=== PATIENT | male | born 2000 | race Asian ===

== ENCOUNTER 2025-01-18 09:55 | Outpatient (REF) | payer BC, SELFPAY ==
[2025-01-19 15:10] LABS: H Pylori Breath Test Negative (Negative)
== END 2025-01-18 09:56 | disposition home or self-care (01) ==
LOC: HO.LNP 09:55
PROVIDERS: Visit Provider Internal Medicine Gastroenterology
DX: R10.9 Unspecified abdominal pain (principal)
CPT/HCPCS: 83013; 99211

== ENCOUNTER 2025-01-18 09:55 | Outpatient (AMB) | payer BC, SELFPAY ==
--- NOTE | 2025-01-18 10:02 | AM.OFFVISNUR ---
Intake Visit Reasons: ylori Nursing Note Patient presents for collection of H Pylori breath test. Patient has been fasting for 1 hour (nothing to eat, drink, no chewing gum or smoking) has not taken any antacid medication for at least 2 weeks and has no allergies to artificial sweeteners.?? Assessment & Plan Assessment & Plan (1) Abdominal pain: Code(s): R10.9 - Unspecified abdominal pain Plan Patient presents for collection of H Pylori breath test. Patient has been fasting for 1 hour (nothing to eat, drink, no chewing gum or smoking) has not taken any antacid medication for at least 2 weeks and has no allergies to artificial sweeteners.???This test checks for an overgrowth of bacteria in your stomach. We all have bacteria but some may have more than others. It is treatable. if the test comes back negative there is nothing else to do. If the test result is positive we will treat you with 2 antibiotics and a medication to decrease the acid in your stomach (PPI) for 2 weeks. Two weeks after you have completed the treatment we will retest you to make sure the overgrowth has resolved. Patient Instructions: Process for specimen collection and reason for testing was explained to the patient. Specimen collection. Patient instructed to take a deep breath and then exhale into the blue bag, filling it up as much as possible. Patient instructed to drink a mixture of water and the artificial sweetener with a straw. A 15 minute wait period was observed. Patient instructed to take a deep breath and then exhale into the pink bag, filling it up as much as possible.?? Coding Level of Care Code Established Pt Est Pt Level 1 (54377) Patient Type Established Medical Decision Making Straight Forward Diagnoses Abdominal pain R10.9
== END 2025-01-18 10:05 | disposition home or self-care (01) ==
LOC: HO.HGI 09:56
DX: R10.9 Unspecified abdominal pain (principal)

== ENCOUNTER 2025-01-24 14:20 | Outpatient (REF) | payer BC, SELFPAY ==
[2025-01-24 14:46] LABS: MANUAL DIFF FLAG NO
[2025-01-24 15:03] LABS: Basophils Percent Auto 0.7 % (0-2); Eosinophils Absolute Auto 0.1 X10*3/uL (0.0-0.4); Hematocrit 41.1 % (42.0-52.0); Hemoglobin 13.8 g/dl (14.0-18.0); Imm Gran Abs Auto 0.02 X10*3/uL (0.00-0.03); Imm Gran Pct Auto 0.3 % (0.0-0.4); Lymphocytes Absolute Auto 2.3 X10*3/uL (1.2-4.9); Lymphocytes Percent Auto 39.2 % (20-40); Mean Corpuscular HGB Conc 33.6 g/dl (31.0-36.0); Mean Corpuscular Hemoglobin 27.7 pg (27.0-33.0); Mean Corpuscular Volume 82.5 fL (80.0-98.0); Mean Platelet Volume 10.4 fL (9.4-12.4); Monocytes Absolute Auto 0.4 X10*3/uL (0.1-1.2); Monocytes Percent Auto 6.1 % (2-11); Neutrophils Absolute Auto 3.1 x10*3/uL (2.0-8.3); Neutrophils Percent Auto 51.7 % (45-73); Platelet Count 219 X10*3/uL (160-400); Red Blood Count 4.98 X10*6/uL (4.60-5.80); Red Cell Distribution Width 12.2 % (11.0-16.0); White Blood Count 5.9 X10*3/uL (4.8-10.8)
[2025-01-24 15:37] LABS: Alanine Aminotransferase 22 U/L (0-40); Albumin Level 4.5 g/dL (3.5-5.0); Anion Gap 11 (12-20); Aspartate Amino Transferase 37 U/L (5-37); Bilirubin Total 0.5 mg/dL (0.0-1.0); Blood Urea Nitrogen 13 mg/dL (9-16); C Reactive Protein < 0.10 mg/dL (< or = 0.50); Calcium 9.4 mg/dL (8.4-10.2); Carbon Dioxide 26 mmol/L (22-29); Chloride 107 mmol/L (96-108); Estimated Glomerular Filt Rate > 60; Glucose Random 92 mg/dL (60-115); Potassium 4.6 mmol/L (3.3-5.1); Sodium 139 mmol/L (135-145); Total Protein 7.3 g/dL (6.5-8.0)
[2025-01-24 15:58] LABS: Ferritin 196 ng/mL (20-250); TSH reflex Free T4 2.85 uIU/mL (0.32-4.0)
[2025-01-24 16:08] LABS: Folate 6.4 ng/mL (> or = 4.0); Vitamin B12 373 pg/mL (200-900)
[2025-01-24 17:59] LABS: Alkaline Phosphatase 69 U/L (39-117)
[2025-01-25 17:33] LABS: IgA 146 mg/dL (47-310); IgG 1082 mg/dL (600-1640); IgM 56 mg/dL (50-300)
[2025-01-25 20:04] LABS: Class Almond 0; Class Brazil Nut 0; Class Cashew 0; Class Codfish 0; Class Cow's Milk 0/1; Class Egg white 0; Class Hazelnut 0; Class Macadamia Nut 0; Class Peanut 0; Class Salmon 0; Class Scallop 0/1; Class Sesame Seed 0; Class Shrimp 3; Class Soybean 0; Class Tuna 0; Class Walnut 0; Class Wheat 2; F001-IgE Egg White <0.10 kU/L; F003-IgE Codfish <0.10 kU/L; F010-IgE Sesame Seed <0.10 kU/L; F013-IgE Peanut <0.10 kU/L; F014-IgE Soybean <0.10 kU/L; F017-IgE Hazelnut (Filbert) <0.10 kU/L; F018-IgE Brazil Nut <0.10 kU/L; F020-IgE Almond <0.10 kU/L; F040-IgE Tuna <0.10 kU/L; F041 IgE Salmon <0.10 kU/L; F202-IgE Cashew Nut <0.10 kU/L; F256-IgE Walnut <0.10 kU/L; F338-IgE Scallop 0.22 kU/L; F345-IgE Macadmia Nut <0.10 kU/L
[2025-01-26 09:04] LABS: HBS Num1 6.88 mIU/mL (0-7.99); HBc Num1 0.09 S/CO (0.00-0.79); HBsAGNum1 0.52 S/CO (0.00-0.99); Hepatitis A Antibody IgM 0.14 Index (0-0.79); Hepatitis B Core Antibody Nonreactive (Nonreactive); Hepatitis B Surface Antigen Negative (Negative); ~HepC Num1 0.15 S/CO (0.00-0.79); ~Hepatitis A Antibody IgM Nonreactive (Nonreactive); ~Hepatitis B Surface Antibody NONREACTIVE (Nonreactive); ~Hepatitis C Antibody Nonreactive (Nonreactive)
== END 2025-01-24 14:21 | disposition home or self-care (01) ==
LOC: HO.LAB 14:20
PROVIDERS: Visit Provider Internal Medicine Gastroenterology
DX: K75.81 Nonalcoholic steatohepatitis (NASH) (principal); R10.9 Unspecified abdominal pain; E46 Unspecified protein-calorie malnutrition; Z91.018 Allergy to other foods
CPT/HCPCS: 36415; 80053; 82607; 82728; 82746; 82784; 84443; 85025; 86003; 86140; 86704; 86706; 86709; 86803; 87340

== ENCOUNTER 2025-01-25 14:56 | Outpatient (REF) | payer BC, SELFPAY ==
[2025-02-01 16:29] LABS: Lactoferrin, Fecal, Quant. <6.25 mcg/mL (<7.25)
== END 2025-01-25 14:57 | disposition home or self-care (01) ==
LOC: HO.LNP 14:56
PROVIDERS: Visit Provider Internal Medicine Gastroenterology
DX: K51.50 Left sided colitis without complications (principal); R10.9 Unspecified abdominal pain; E46 Unspecified protein-calorie malnutrition
CPT/HCPCS: 83631

== ENCOUNTER 2025-01-31 11:27 | Outpatient (AMB) | payer BC, SELFPAY ==
--- NOTE | 2025-01-31 11:29 | MHC.OFFVIS ---
Vital Signs 01/31/25 11:31 Height 5 ft 11 in Weight 202 lb 13.204 oz BMI 28.3 BP 115/61 Blood Pressure Location Lt brachial Position Sitting Pulse 45 L Intake Visit Reasons: f/u Intake Note: Sammie presents in the office as a follow up. CC: He states that he hears his bowels throughout the day and lots of bloating in the middle part of his abdomen. States that the bloating is also in the lower part of his stomach. He states he has an issue to have a BM. 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 Required: No Allergies wheat Allergy (Mild, Verified 01/31/25 11:33) Unknown scallops Adverse Reaction (Mild, Verified 01/31/25 11:33) Unknown shrimp Adverse Reaction (Mild, Verified 01/31/25 11:33) Unknown cow milk Adverse Reaction (Mild, Uncoded 01/31/25 11:33) Unknown HPI HPI f/u: Details: HPI 24 yr old m here for assessment He has been having abdominal issues bloating lower abdominal pain for 3 months like a fullness he has to wait in the bathroom he has constipation usually which is new for him no blood in stools no nausea or vomiting appetite fair early satiety weight is stable he has weird sensation rectum area H pylori is negative RASt pos for wheat, shrimp, scallop EGD: 09/04- esophagitis, erosive duodenitis, erosive gastritis ROS: Constitutional : No Weight loss, No Fever, No Chills ENT/Mouth : No sore throat, No Rhinorrhea Eyes: No Swelling, No Redness Cardiovascular : No Chest Pain, No SOB, No Edema Respiratory : No Cough, No Sputum, No Wheezing Gastrointestinal : see HPI Genitourinary : NO Dysuria, No Urinary Frequency, No Hematuria, No Urgency Musculoskeletal : no joint pain, No Myalgias, No Joint Swelling Skin : No Skin Lesions, No rash Neuro : No Weakness, No Numbness, No Dizziness, No Headache Psych : No Anxiety/Panic, No Depression Heme/Lymph: No Bruising, No Lymphadenopathy Endocrine : No Polyuria, No Polydipsia All other systems reviewed and are negative. Medical History none Surgical History arthroscopy Family History mother -breast cancer -55 Social History no alcohol, no smoking, no drug use studying [employer] EXAM: GENERAL: The patient is well developed and nontoxic. VITAL SIGNS:see workflow HEENT: Nonicteric sclerae, PERRLA, EOMI. Oropharynx clear. Moist mucous membranes. Conjunctivae appear well perfused. No thyroid mass. CHEST: Chest wall is nontender. HEART: Regular rate and rhythm without murmurs. LUNGS: Clear to auscultation bilaterally. ABDOMEN: Soft, positive bowel sounds, nontender, no organomegaly.no flank tenderness SKIN: No rash, no excessive bruising, petechiae, or purpura. NEUROLOGIC: Cranial nerves II-XII intact without motor/sensory deficit. Psych: normal affect A/P: 1/ Abn bowel habit, early satiety PLAN: 1/ mild anemia on labs, need to exclude mechancical issues, IBD, polyps, 2/ EGD and colo for further assessment, suprep if covered otherwise miralax and gatorade 3/ trial of PPI [facility] Surgical History (Updated 01/31/25 @ 11:33 by MATY Fowler) History of esophagogastroduodenoscopy (EGD) Physical Exam Vital Signs: Last Vital Signs Pulse 45 L 01/31/25 11:31 BP 115/61 01/31/25 11:31 BMI result Body Mass Index 28.3 Assessment & Plan Assessment & Plan (1) Abdominal pain: Code(s): R10.9 - Unspecified abdominal pain Category: Medical Plan: as above Medications: New omeprazole 40 mg PO DAILY 90 caps 1RF sodium,potassium,mag sulfates 17.5-3.13-1.6 gram (Suprep Bowel Prep Kit) DILUTE; drink 1/2 at 6-8 pm and half at 11 PM- 1AM 354 mL 0RF Coding Level of Care Code New Pt Level 4 (76262) Diagnoses Abdominal pain R10.9
[2025-01-31 11:31] VITALS: BP 115/61; PULSE 45; BMI 28.3
== END 2025-01-31 16:51 | disposition home or self-care (01) ==
LOC: HO.HGI 11:27
PROVIDERS: Visit Provider Internal Medicine Gastroenterology
DX: R10.9 Unspecified abdominal pain (principal)
CPT/HCPCS: 99204

== ENCOUNTER → 2025-01-31 11:27 | Outpatient (BNVA) | payer BC, SELFPAY | PROVIDERS: Visit Provider Internal Medicine Gastroenterology | DX: Z13.89 Encounter for screening for other disorder (principal) ==

== ENCOUNTER 2025-02-01 10:29 | Day surgery (SDC) | payer BC, SELFPAY ==
[2025-02-01 11:44] VITALS: BMI 28.8
--- NOTE | 2025-02-01 11:55 | MHC.SHP ---
Pre-Procedural Eval Section A - 24 Hr Update-Section A only Date of Service: 02/01/25 The patient is an INPATIENT: No The patient has been examined within 24 hours of the surgical procedure. The History & Physical has been completed within 30 days and I have reviewed it.: Yes Section B - Complete if H&P > 30 days Chief Complaint: Unspecified abdominal pain Allergies: Allergies Allergy/AdvReac Type Severity Reaction Status Date / Time wheat Allergy Mild Diarrhea Verified 02/01/25 11:44 scallops AdvReac Mild Diarrhea Verified 02/01/25 11:44 shrimp AdvReac Mild Diarrhea Verified 02/01/25 11:44 cow milk AdvReac Mild Diarrhea Uncoded 02/01/25 11:44 Plan Diagnosis/Plan: Unchanged I have reviewed the history and physical and performed a pertinent physical examination on my patient. No changes have occurred unless specified. Time Spent With Patient Time: Total time managing care of this patient today ____ minutes.
[2025-02-01 12:02] VITALS: BP 124/69; PULSE 40; RESP 16; TEMP 36.3; O2SAT 100
--- NOTE | 2025-02-01 12:09 | HO.ANESPROP2 ---
PMFSH Active Problems Active Problems: All Active Problems Malnutrition (Acute) Abdominal pain (Acute) Family History Family history of problems with anesthesia: No Surgical History Surgical History (Updated 02/01/25 @ 11:43 by Karina Hernandez RN) H/O shoulder surgery History of esophagogastroduodenoscopy (EGD) History of Problems with Anesthesia: No Social History Social History Patient Tobacco Use Status: Never used Tobacco Use of substances other than those prescribed or required for medical reasons: No Are you DNR?: No Advance Directives: No Advance Directives Information Provided: Yes Poor oral hygiene: No Meds Allergies Allergy/AdvReac Type Severity Reaction Status Date / Time wheat Allergy Mild Diarrhea Verified 02/01/25 11:44 scallops AdvReac Mild Diarrhea Verified 02/01/25 11:44 shrimp AdvReac Mild Diarrhea Verified 02/01/25 11:44 cow milk AdvReac Mild Diarrhea Uncoded 02/01/25 11:44 Exam Height,Weight and Vital Signs: Height 5 ft 10 in Weight 90.9 kg Last Vital Signs Temp 97.4 F 02/01/25 12:02 Pulse 40 L 02/01/25 12:02 Resp 16 02/01/25 12:02 BP 124/69 02/01/25 12:02 Pulse Ox 100 02/01/25 12:02 O2 Del Method Room Air 02/01/25 12:02 Airway Mallampati Class: II TM Dist: >3cm Neck ROM: Full Assessment and Plan Assessment Anesthesia Assessment: Anesthesia Plan Discussed and Chart Reviewed Final Anesthetic Review Family History of Problems with Anesthesia: No History of Problems with Anesthesia: No NPO: Yes ASA Class: II Final Preanesthetic Review: No Changes in Pt Med Stat, Meds/Allgs Chart Reviewed, Consent Obtained/Reviewed and Anes Risks/Benef Reviewed Patient Risk: Low Procedure Risk: Low Anesthetic Plan Anesthetic Plan: TIVA Disposition: Standard PACU
[2025-02-01 12:22] VITALS: BMI 27.7
--- NOTE | 2025-02-01 13:13 | HO.OPN-COLON ---
Colonoscopy Operative Note Operative Note Date of Service: 02/01/25 Narrative: Operative Information Procedure Description: EGD, Colonoscopy Indication: GERD, abn bowel habits Anesthesia: MAC FLEXIBLE TRANSORAL UPPER GASTROINTESTINAL ENDOSCOPY AND COLONOSCOPY PROCEDURE NOTE UPPER ENDOSCOPY Consent: Indications for the procedure and potential complications of bleeding, perforation, reaction to medications and missed diagnosis were discussed with the patient and informed consent was obtained. Instrument: Olympus GIF H 190 J mid size upper endoscope Monitoring: Vital signs and clinical assessment, continuous EKG monitoring, Pulse oximetry, Carbon Dioxide monitoring and blood pressure monitoring were done throughout the procedure. Procedure: The patient was placed in the left lateral decubitis position and pre-procedure medications were administered and a bite block was placed. The endoscope was inserted into the mouth and advanced under direct vision to the third part of duodenum. A careful inspection was made as the upper endoscope was withdrawn including a retroflexed examination of the proximal stomach; Findings and interventions are described below. Findings: Larynx:normal Esophagus: GE junction at 40 cm, diaphragm hiatus at 40 cm, mild esophagitis, bx taken from GEJ Stomach: Patchy erythema. Biopsies were obtained. Grade 2 flap valve on retroflexed examination of the cardia. Duodenum: Normal bulb and descending duodenum, bx taken Intervention: Biopsies as noted above, COLONOSCOPY Instrument: Olympus variable stiffness pediatric scope 190L Colonoscopy Monitoring: Vital signs and clinical assessment, continuous EKG monitoring, Pulse oximetry, Carbon Dioxide monitoring and blood pressure monitoring were done throughout the procedure. Colon withdrawal time was 10 minutes. Procedure: The patient was placed in the left lateral decubitis position and pre-procedure medications were administered. After a digital rectal examination of the ano-rectum, the video colonoscope was inserted into the rectum and advanced through the colon to the cecum/TI. The colonoscope was slowly withdrawn in a retrograde panoramic fashion and the colon mucosa was carefully examined including a retroflexed view of the rectum. Findings and interventions are described below. Procedure Difficulty:moderate Findings: Terminal Ileum-normal, bx taken random bx taken from right left and rectum areas Cecum:normal Ascending Colon: normal Transverse Colon -normal Descending Colon:normal Sigmoid Colon: normal Rectum: Retroflexion with small internal hemorrhoids, grade I, mild patchy erythema Anorectum - normal Colon preparation: [place] Bowel Preparation Scale Right colon; 3 Transverse colon: 3 Left colon; 3 (0 = Unprepared colon segment with mucosa not seen due to solid stool that cannot be cleared. 1 = Portion of mucosa of the colon segment seen, but other areas of the colon segment not well seen due to staining, residual stool and/or opaque liquid. 2 = Minor amount of residual staining, small fragments of stool and/or opaque liquid, but mucosa of colon segment seen well. 3 = Entire mucosa of colon segment seen well with no residual staining, small fragments of stool or opaque liquid) Impression and Post Procedure Diagnosis: Endoscopy Findings: esophagitis gastritis Colonoscopy Findings: mild proctitis small internal hemorrhoids Plan: Await Pathology results Repeat Colonoscopy aged 45 or earlier if clinically indicated High fiber diet leaflet avoid straining at stool, epsom salts and sitz bath, anusol supps or cream commence PPI consider mesalamine and see if helps, might start with PO first Above findings were reviewed with the patient and relevant handouts were provided if indicated.
[2025-02-01 13:16] VITALS: BP 98/57; PULSE 59; RESP 15; TEMP 36.1; O2SAT 99
[2025-02-01 13:27] VITALS: BP 104/60; PULSE 53; RESP 17; TEMP 36.4; O2SAT 99
[2025-02-01 13:33] VITALS: BP 107/67; RESP 15; TEMP 36.3; O2SAT 100
== END 2025-02-01 13:57 | disposition home or self-care (01) ==
PROVIDERS: Visit Provider Internal Medicine Gastroenterology
PROC: (CPT 45380; principal; 2025-02-01 13:20)
DX: R19.4 Change in bowel habit (principal); K62.89 Other specified diseases of anus and rectum; K64.0 First degree hemorrhoids; R14.0 Abdominal distension (gaseous); R68.81 Early satiety; K21.9 Gastro-esophageal reflux disease without esophagitis; K29.50 Unspecified chronic gastritis without bleeding; K20.80 Other esophagitis without bleeding; K44.9 Diaphragmatic hernia without obstruction or gangrene; Z91.011 Allergy to milk products; Z91.013 Allergy to seafood; Z91.018 Allergy to other foods
CPT/HCPCS: 45380; 43239; 88305; 88313; 88342; J2003; J2704

== ENCOUNTER → 2025-02-01 10:29 | Outpatient (BNV) | payer BC, SELFPAY | PROVIDERS: Visit Provider Internal Medicine Gastroenterology | DX: R19.5 Other fecal abnormalities (principal); K62.89 Other specified diseases of anus and rectum; K64.8 Other hemorrhoids; K21.00 Gastro-esophageal reflux disease with esophagitis, without bleeding; K29.70 Gastritis, unspecified, without bleeding | CPT/HCPCS: 43239; 45380 ==

== ENCOUNTER 2025-02-27 10:41 | Outpatient (AMB) | payer BC, SELFPAY ==
[2025-02-27 10:44] VITALS: BP 116/56; PULSE 44; BMI 27.7
--- NOTE | 2025-02-27 10:44 | A.OFFVIS_ITS ---
Vital Signs 02/27/25 10:44 Height 5 ft 11 in Weight 198 lb 6.656 oz BMI 27.7 BP 116/56 L Blood Pressure Location Lt brachial Position Sitting Pulse 44 L Intake Visit Reasons: abd pain Intake Note: Sammie presents in the office as a follow up for abdominal pains. CC :HAd a colo and EGD - states symptoms are all the same. Allergies wheat Allergy (Mild, Verified 02/27/25 10:44) Diarrhea scallops Adverse Reaction (Mild, Verified 02/27/25 10:44) Diarrhea shrimp Adverse Reaction (Mild, Verified 02/27/25 10:44) Diarrhea cow milk Adverse Reaction (Mild, Uncoded 02/27/25 10:44) Diarrhea HPI HPI abd pain: Details: 24 yr old m here for f/u RECAP He had been having abdominal issues bloating lower abdominal pain for 3 months like a fullness he had to wait in the bathroom he had constipation usually which was new for him EGD: 09/04--WEND[facility]- esophagitis, erosive duodenitis, erosive gastritis EGD/[place]: 01/2025 Endoscopy Findings: esophagitis gastritis Colonoscopy Findings: mild proctitis small internal hemorrhoids Path: reflux changes Labs: mild anemia, RAST pos to wheat and shrimp H pylori- negative INTERIM: he feels symptoms are the same he tried mesalamine supps for few times but not properly fullness has improved he has changed diet --avoiding wheat and shrimp he got metamucil but only taking before bed mother with stage 4 breast ca ROS: Constitutional : No Weight loss, No Fever, No Chills ENT/Mouth : No sore throat, No Rhinorrhea Eyes: No Swelling, No Redness Cardiovascular : No Chest Pain, No SOB, No Edema Respiratory : No Cough, No Sputum, No Wheezing Gastrointestinal : see HPI Genitourinary : NO Dysuria, No Urinary Frequency, No Hematuria, No Urgency Musculoskeletal : no joint pain, No Myalgias, No Joint Swelling Skin : No Skin Lesions, No rash Neuro : No Weakness, No Numbness, No Dizziness, No Headache Psych : No Anxiety/Panic, No Depression Heme/Lymph: No Bruising, No Lymphadenopathy Endocrine : No Polyuria, No Polydipsia All other systems reviewed and are negative. Medical History none Surgical History arthroscopy Family History mother -breast cancer -55 Social History no alcohol, no smoking, no drug use studying [employer] EXAM: GENERAL: The patient is well developed and nontoxic. VITAL SIGNS:see workflow HEENT: Nonicteric sclerae, PERRLA, EOMI. Oropharynx clear. Moist mucous membranes. Conjunctivae appear well perfused. No thyroid mass. CHEST: Chest wall is nontender. HEART: Regular rate and rhythm without murmurs. LUNGS: Clear to auscultation bilaterally. ABDOMEN: Soft, positive bowel sounds, nontender, no organomegaly.no flank tenderness SKIN: No rash, no excessive bruising, petechiae, or purpura. NEUROLOGIC: Cranial nerves II-XII intact without motor/sensory deficit. Psych: normal affect A/P: 1/ Abn bowel habit, could be diet related, no obvious cause on endoscopy, mild proctitis but bx were negative PLAN: 1/ Discussed getting CTe, he will consider it vs capsule depending on insurance issues 2/ we did discuss diet improvements incl increasing water intake which is poor 3/ cont to avoid allergens 4/ trial of claritin , might help if allergy related PFSH Surgical History (Updated 02/27/25 @ 10:45 by MATY Fowler) Hx of colonoscopy H/O shoulder surgery History of esophagogastroduodenoscopy (EGD) Social History Patient Tobacco Use Status: Never used Tobacco Physical Exam Vital Signs: Last Vital Signs Pulse 44 L 02/27/25 10:44 BP 116/56 L 02/27/25 10:44 BMI result Body Mass Index 27.7 Assessment & Plan Assessment & Plan (1) Abdominal pain: Code(s): R10.9 - Unspecified abdominal pain Category: Medical Plan: as above Plan as above Orders: Orders CT enterography Today R10.33 - Periumbilical pain Medications: New loratadine (Claritin) 10 mg PO DAILY 30 tabs 2RF Coding Level of Care Code Est Pt Level 3 (08207) Diagnoses Abdominal pain R10.9
== END 2025-02-27 11:21 | disposition home or self-care (01) ==
LOC: HO.HGI 10:42
PROVIDERS: Visit Provider Internal Medicine Gastroenterology
DX: R10.9 Unspecified abdominal pain (principal)
CPT/HCPCS: 99213

== ENCOUNTER → 2025-02-27 10:41 | Outpatient (BNVA) | payer BC, SELFPAY | PROVIDERS: Visit Provider Internal Medicine Gastroenterology | DX: Z13.89 Encounter for screening for other disorder (principal) ==

== ENCOUNTER 2025-04-11 08:23 | Outpatient (REF) | payer BC, SELFPAY ==
--- NOTE | ~2025-04-11 | CT_ITS ---
EXAMINATION: CT ABDOMEN PELVIS ENTEROGRAPHY WITHOUT IV CONTRAST HISTORY: R10.33 - Periumbilical pain COMPARISON: There are no prior studies for available comparison. TECHNIQUE: CT scan of the abdomen and pelvis was performed following administration of 85 mL Omnipaque 350 using standard departmental protocol. Coronal and sagittal reformatted images were generated and reviewed. The patient received low-density oral contrast material for CT enterography. This CT exam was performed with one or more of the following dose reduction techniques: automated exposure control, adjustment of the mA and/or kV according to patient size, use of iterative reconstruction technique. DLP: 458 mGy-cm FINDINGS: LOWER CHEST: The visualized lung bases are clear. There is no pleural effusion. CARDIOVASCULATURE: The heart is normal in size. There is no pericardial effusion. LIVER: The liver is normal in size and contour. No liver mass is identified. The portal vein is patent. GALLBLADDER / BILE DUCTS: The gallbladder is unremarkable. There is no intra or extrahepatic biliary ductal dilatation. SPLEEN: The spleen is normal in size. No focal splenic lesion is identified. PANCREAS: The pancreas is unremarkable in appearance. ADRENAL GLANDS: Within normal limits. KIDNEYS/RETROPERITONEUM: No renal calculi are identified. There is no hydronephrosis. No renal masses are identified. LYMPH NODES: No abdominal or pelvic lymphadenopathy. VASCULATURE: The abdominal aorta is normal in caliber. 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 The superior mesenteric and inferior mesenteric arteries are patent. MESENTERY/PERITONEUM: No free fluid. No masses. There is no free intraperitoneal gas. STOMACH: The stomach is unremarkable. SMALL BOWEL: The small bowel is normal in caliber. There is no abnormal small bowel wall thickening or mucosal hyperenhancement. COLON: There is a large amount of stool throughout the colon. APPENDIX: Normal. URINARY BLADDER/PELVIC ORGANS: The urinary bladder is unremarkable. The prostate is normal in size. BONES / SOFT TISSUES: No suspicious bony or soft tissue abnormalities. CT/CT enterography IMPRESSION: 1. No small bowel abnormality is identified. 2. 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 Clinical correlation is recommended. Doppler ultrasound of the celiac axis during different phases of respiration may be helpful. Electronically signed by: Dima Malik MD 04/11/2025 10:33 AM EDT RP
[2025-04-11] MEDS: iohexoL 350 MG/ML 100 ML INFUS..BTL 85 ML IV (10:06)
[2025-04-11] MEDS: Sorbitol/Mannit/Xanth Imaging 500 ML LIQUID 1500 ML PO (10:07)
== END 2025-04-11 08:24 | disposition home or self-care (01) ==
LOC: HO.CT 08:23
PROVIDERS: Visit Provider Internal Medicine Gastroenterology
DX: R10.33 Periumbilical pain (principal)
CPT/HCPCS: 74177; Q9967

== ENCOUNTER → 2025-04-11 08:25 | Outpatient (BNV) | payer BC, SELFPAY | PROVIDERS: Visit Provider Radiology Diagnostic Radiology | DX: R10.33 Periumbilical pain (principal) | CPT/HCPCS: 74177 ==

== ENCOUNTER 2025-04-25 09:31 | Outpatient (REF) | payer BC, SELFPAY ==
--- NOTE | ~2025-04-25 | US_ITS ---
EXAM: Ultrasound mesenteric arteries INDICATION: Generalized abdominal pain, epigastric pain, nausea, worsened after eating or drinking TECHNIQUE: Grayscale, color Doppler, and duplex was performed to evaluate the aorta, celiac artery, SMA, FANTA, splenic artery, and hepatic artery during inspiration and expiration. Comparison: CT from April 11, 2025 FINDINGS: US Data: Aorta peak systolic velocity (cm/sec) Measurement 1 proximal to SMA: 138 Measurement 2 distal to SMA: 137 Average: 138 Triphasic arterial waveform Celiac axis peak systolic velocity during inspiration (cm/sec) Measurement 1 supine: 275 Measurement 2 upright: 146 Celiac axis peak systolic velocity during expiration (cm/sec) Measurement 1 supine: 164 Measurement 2 upright: 308 Ratio celiac expiration: Aorta = 2.2 Deflection angle between inspiration and expiration = 45 degrees SMA peak systolic velocity (cm/sec) Measurement proximal: 299 Measurement mid: 232 Distal: 94 Low resistance arterial waveform. FANTA peak systolic velocity (cm/sec) Measurement: 127 Low resistance arterial waveform. Splenic artery peak systolic velocity (cm/sec) Measurement: 127 Low resistance arterial waveform. Hepatic artery peak systolic velocity (cm/sec) Measurement: 145 Low resistance arterial waveform On CT, celiac axis has a hooked morphology with an indent on the cephalad margin of the vessel. US/US SMA IMPRESSION: The examination is suggestive of but not 100% diagnostic of median arcuate ligament syndrome. There is an elevated deflection angle. The celiac axis has a hooked morphology with an indent on the superior margin. There is an elevated peak systolic velocity of the celiac axis during expiration in the upright position but not in supine position. However, the ratio peak velocity maximum of the celiac axis in expiration compared to the aortic velocity is not elevated. Electronically signed by: Carroll Rahman MD 04/25/2025 10:36 AM EDT
== END 2025-04-25 09:32 | disposition home or self-care (01) ==
LOC: HO.US 09:31
PROVIDERS: Visit Provider Internal Medicine Gastroenterology
DX: R10.9 Unspecified abdominal pain (principal)
CPT/HCPCS: 93976

== ENCOUNTER → 2025-04-25 09:33 | Outpatient (BNV) | payer BC, SELFPAY | PROVIDERS: Visit Provider Radiology Diagnostic Radiology | DX: R10.84 Generalized abdominal pain (principal); R10.13 Epigastric pain; R11.0 Nausea | CPT/HCPCS: 93976 ==

== ENCOUNTER 2025-06-13 10:50 | Outpatient (AMB) | payer BC, SELFPAY ==
[2025-06-13 10:52] VITALS: BMI 27.6
--- NOTE | 2025-06-13 10:52 | A.OFFVIS_ITS ---
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 He had originally seen our GI team in February of this year. At that time he had undergone CT and upon subsequent discussion with me we also obtained an ultrasound. He has been having intermittent abdominal pain. He has had a bloating and full feeling this has been going on for the past 6 months or so. He has episodes of severe constipation. He denies any significant weight loss. Of note he has had a prior EGD performed in [facility] on 09/04 demonstrating esophagitis erosive duodenitis any erosive gastritis. He now presents to us for vascular evaluation. Of note he is a nonsmoker nondrinker and a nondiabetic. [facility] Surgical History Hx of colonoscopy H/O shoulder surgery History of esophagogastroduodenoscopy (EGD) Social History Patient Tobacco Use Status: Never used Tobacco Review of Systems Const All systems reviewed & are unremarkable except as noted in HPI and below Reports no additional complaints ENT Reports Normal hearing present Card Denies chest pain, Denies chest pain at rest, Denies chest pain with activity and Denies pedal edema Resp Denies cough GI Denies abdominal pain Musc Denies abnormal gait, Denies muscle cramps and Denies radiating pain into limb Skin/Breast Denies skin ulcer and Denies wounds Neuro Reports Normal hearing present and Denies abnormal gait Psych Reports no additional complaints Physical Exam Vital Signs: BMI result Body Mass Index 27.6 Const General: cooperative, healthy appearing and comfortable Orientation/consciousness: oriented to person, oriented to place and oriented to time HEENT Head: Yes normal to inspection Neck Neck: Yes normal visual inspection Carotids: no bruits Chest Chest palpation & inspection: normal inspection of the chest Resp Effort & Inspection: normal respiratory effort and able to speak in complete sentences Auscultation: clear to auscultation bilaterally, no crackles, no rales, no rhonchi and no wheezes Cardio Rate: regular rate Rhythm: regular rhythm Heart sounds: S1 normal heart sound present and S2 normal heart sound present Bruits: no carotid bruits Peripheral pulses: Peripheral pulses 2+ throughout GI Inspection: Yes normal to inspection Skin Wounds: no wounds Hair: normal Neuro General: oriented to person, oriented to place and oriented to time Cranial nerves: Yes CN's II-XII intact bilaterally and Yes Normal hearing present Cognition (Neuro): normal cognition Motor exam (neuro): 5/5 motor strength present throughout Extrem Other: venous exam: No significant superficial varicosities or spider telangiec tasias, minimal edema General: No clubbing, No cyanosis and No edema Psych Appearance: grossly normal Mental Status: mental status grossly normal Speech and movement: Normal speech and movement present Results Reviewed Results Reviewed: Ultrasound dated 04/25/2025 concerning for median arcuate ligament syndrome. Celiac access had hooked morphology. CT scan dated 04/11/2025 is also concerning for this. 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 He does demonstrate the symptomatology ultrasound and CAT scan was concerning for this as well. I did discuss this with the GI team. He will need to be referred to a tertiary care center that would be able to offer laparoscopic treatment for this. We will try to help coordinate this for him. He will follow up with us on an as-needed basis. Thank you for allowing us to assist in his care. If there are any questions or concerns please do not hesitate to contact us. Coding Level of Care Code New Pt Level 4 (27819) Diagnoses Median arcuate ligament syndrome I77.4
== END 2025-06-13 11:18 | disposition home or self-care (01) ==
LOC: HO.HVS 10:52
PROVIDERS: Visit Provider Surgery Vascular Surgery
DX: I77.4 Celiac artery compression syndrome (principal)
CPT/HCPCS: 99204

== ENCOUNTER 2025-07-10 09:56 | Outpatient (AMB) | payer BC, SELFPAY ==
[2025-07-10 10:04] VITALS: BP 119/60; PULSE 38; BMI 28.9
--- NOTE | 2025-07-10 10:04 | A.OFFVIS_ITS ---
Vital Signs 07/10/25 10:04 Height 5 ft 11 in Weight 207 lb 3.752 oz BMI 28.9 BP 119/60 Blood Pressure Location Lt brachial Position Sitting Pulse 38 L Intake Visit Reasons: f/u Intake Note: Catherine presents in the office as a follow up colonoscopy. CC: states he is having pains in the abdomen. Residential Sales Representative Required: No Allergies wheat Allergy (Mild, Verified 06/13/25 10:54) Diarrhea scallops Adverse Reaction (Mild, Verified 06/13/25 10:54) Diarrhea shrimp Adverse Reaction (Mild, Verified 06/13/25 10:54) Diarrhea cow milk Adverse Reaction (Mild, Uncoded 06/13/25 10:54) Diarrhea HPI HPI f/u: Details: 24 yr old m here for f/u RECAP He had been having abdominal issues bloating lower abdominal pain for 3 months like a fullness he had to wait in the bathroom he had constipation usually which was new for him EGD: 09/04--[facility]- esophagitis, erosive duodenitis, erosive gastritis EGD/[place]: 01/2025 Endoscopy Findings: esophagitis gastritis Colonoscopy Findings: mild proctitis small internal hemorrhoids Path: reflux changes Labs: mild anemia, RAST pos to wheat and shrimp H pylori- negative He had imaging and concern for celiac compression syndrome INTERIM: He saw Dr Rivas and awaiting apptm for Dr Rosenthal symptoms are ongoing as before he has pinching sensation LUQ, better after going to bathroom he has pain and gas after eating food,as before EXAM: GENERAL: The patient is well developed and nontoxic. VITAL SIGNS:see workflow HEENT: Nonicteric sclerae, PERRLA, EOMI. Oropharynx clear. Moist mucous membranes. Conjunctivae appear well perfused. No thyroid mass. CHEST: Chest wall is nontender. HEART: Regular rate and rhythm without murmurs. LUNGS: Clear to auscultation bilaterally. ABDOMEN: Soft, positive bowel sounds, nontender, no organomegaly.no flank tenderness SKIN: No rash, no excessive bruising, petechiae, or purpura. NEUROLOGIC: Cranial nerves II-XII intact without motor/sensory deficit. Psych: normal affect A/P: 1/ Abn bowel habit, could be diet related but most likely 2/2 to celiac axis compression PLAN: 1/ increase fiber, trial of trental due to anti oxidative effects and vasodilation effects--cassie referral [facility] Surgical History Hx of colonoscopy H/O shoulder surgery History of esophagogastroduodenoscopy (EGD) Social History Patient Tobacco Use Status: Never used Tobacco Physical Exam Vital Signs: Last Vital Signs Pulse 38 L 07/10/25 10:04 BP 119/60 07/10/25 10:04 BMI result Body Mass Index 28.9 Assessment & Plan Assessment & Plan (1) 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
== END 2025-07-10 10:56 | disposition home or self-care (01) ==
LOC: HO.HGI 09:56
PROVIDERS: Visit Provider Internal Medicine Gastroenterology
DX: I77.4 Celiac artery compression syndrome (principal)
CPT/HCPCS: 99213